=== PATIENT | female | born 1995 | race Caucasian/White ===

== ENCOUNTER 2019-09-05 11:57 | Inpatient (IN) | payer OTHER ==
[2019-09-10] MEDS ORDERED: METHYLERGONOVINE 0.2 MG/ML 1 ML AMP IM PRN (06:23)
[2019-09-10] MEDS ORDERED: OXYTOCIN 10 UNIT/ML 1 ML VIAL IM PRN (06:23)
[2019-09-10] MEDS ORDERED: TERBUTALINE 1 MG/ML VIAL SQ PRN (06:23)
[2019-09-10] MEDS ORDERED: LIDOCAINE 0.5% (PF) 5 MG/ML (50 ML SDV) SQ PRN (06:23)
[2019-09-10] MEDS ORDERED: CARBOPROST TROMETHAMINE 250 MCG/ML 1 ML AMP IM PRN (06:23)
[2019-09-10] MEDS ORDERED: OXYTOCIN 30 UNITS/500 ML NS 30 UNIT in SALINE 1 500ML.BAG IV SCH (06:30)
[2019-09-10] MEDS: LACTATED RINGERS 1,000 ML IV SCH ×2 (06:48→13:00)
[2019-09-10 06:58] LABS: Basophils # (A) 0.1 k/uL (0-0.2); Basophils % (A) 1 %; Eosinophils # (A) 0.1 k/uL (0-0.7); Eosinophils % (A) 1 %; HCT 42.7 % (34.0-46.0); HGB 14.3 gm/dL (11.4-16.0); Lymphocytes # (A) 2.1 k/uL (1.0-4.8); Lymphocytes % (A) 20 %; MCH 30.7 pg (25.0-35.0); MCHC 33.5 g/dL (31.0-37.0); MCV 91.8 fL (80.0-100.0); Mean Platelet Volume 9.4; Monocytes # (A) 0.6 k/uL (0-1.0); Monocytes % (A) 5 %; Neutrophils # (A) 7.4 k/uL (1.3-7.7); Neutrophils % (A) 71 %; Platelet Count 204 k/uL (150-450); RBC 4.65 m/uL (3.80-5.40); RDW 12.8 % (11.5-15.5); WBC 10.4 k/uL (3.8-10.6)
--- NOTE | 2019-09-10 08:20 | P.HPOB ---
History of Present Illness H&P Date: 09/10/19 Chief Complaint: IUP at 40-5/7 weeks, post date induction of labor This is a pleasant 23-year-old 1 para 0 at 40-5/7 weeks with an estimated due date of 09/04. Patient has been receiving routine care with myself which has been essentially uncomplicated. Patient was seen for routine visit yesterday which entailed an ultrasound revealing an estimated weight of 9 lbs. 3 oz. with normal amniotic fluid index an NST which was category 1. Patient denied contractions at that time. Patient was counseled on induction of labor secondary to postda clarence and LGA. Patient stated understanding and wished to proceed with induction of labor. This morning patient states good movement, she denies contractions, denies loss of fluid or vaginal bleeding. On bloodwork patient has a blood type of A+, rubella status immune, hepatitis B surface antigen negative, RPR nonreactive, HIV negative, GBS is negative. Review of Systems Constitutional: Denies chills, Denies fatigue, Denies fever Ears, nose, mouth and throat: Denies headache Cardiovascular: Reports leg edema Respiratory: Denies dyspnea Gastrointestinal: Denies constipation, Denies diarrhea, Denies nausea, Denies vomiting Genitourinary: Reports Past Medical History Past Medical History: No Reported History History of Any Multi-Drug Resistant Organisms: None Reported Past Surgical History: Tonsillectomy Additional Past Surgical History / Comment(s): wisdom teeth removed Past Anesthesia/Blood Transfusion Reactions: No Reported Reaction Smoking Status: Never smoker Medications and Allergies Home Medications Medication Instructions Recorded Confirmed Type Pnv,Calcium 72/Iron/Folic Acid 1 each PO DAILY 09/10/19 09/10/19 History [ Plus Tablet] Allergies Allergy/AdvReac Type Severity Reaction Status Date / Time Penicillins Allergy Unknown Verified 09/10/19 06:20 Childhood Exam Osteopathic Statement: *. No significant issues noted on an osteopathic structural exam other than those noted in the History and Physical/Consult. 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 Results Result Diagrams: 09/10/19 06:40 Assessment and Plan (1) Post-dates Current Visit: Yes Status: Acute Code(s): O48.0 - POST-TERM SNOMED Code(s): 78917254 Plan: This 23-year-old 1 para 0 at 40-5/7 weeks presents for elective induction of labor secondary to postdates. Patient is admitted and Pitocin induction of labor is begun per hospital protocol. Options for analgesia are discussed including epidural/Stadol. Patient states understanding and will consider both.
[2019-09-10] MEDS ORDERED: BUTORPHANOL 1 MG/ML 1 ML VIAL IV PRN (08:34)
[2019-09-10] MEDS ORDERED: ROPIVACAINE 5MG/ML 20ML VIAL ONE (11:27)
[2019-09-10] MEDS ORDERED: fentaNYL (PF) 50 MCG/ML 5 ML AMP ONE (11:27)
[2019-09-10] MEDS ORDERED: SODIUM CHLORIDE 0.9% 100 ML BAG ONE (11:27)
[2019-09-10] MEDS ORDERED: diphenhydrAMINE 50 MG CAP PO PRN (17:41)
[2019-09-10] MEDS ORDERED: SIMETHICONE 80 MG CHEWABLE PO PRN (17:41)
[2019-09-10] MEDS ORDERED: ACETAMINOPHEN TAB 325 MG TAB PO PRN (17:41)
[2019-09-10] MEDS ORDERED: BENZOCAINE/MENTHOL SPRAY 1 GM/SPRAY AEROSOL TOPICAL PRN (17:41)
[2019-09-10] MEDS ORDERED: HYDROCORTISONE 2.5% RECTAL CREAM 30 GM TUBE RECTAL PRN (17:41)
[2019-09-10] MEDS ORDERED: diphenhydrAMINE 50 MG/ML 1 ML VIAL IVP PRN ×2 (17:41)
[2019-09-10] MEDS ORDERED: HYDROcodone/APAP 5-325MG 1 EACH TAB PO PRN (17:41)
[2019-09-10] MEDS ORDERED: diphenhydrAMINE 25 MG CAP PO PRN (17:41)
[2019-09-10] MEDS ORDERED: ZOLPIDEM 5 MG TAB PO PRN (17:41)
[2019-09-10] MEDS ORDERED: LANOLIN CREAM 5 GM TUBE TOPICAL PRN (17:41)
--- NOTE | 2019-09-10 17:41 | P.PROBDLV ---
Vaginal Delivery Note - . Vaginal Delivery Note: This is a 23-year-old 1 para 0 at 40-5/7 weeks that presents to labor and delivery for induction of labor secondary to postdates. Patient was admitted to labor and delivery and doesn't induction of labor was begun per hospital protocol. Patient underwent amniotomy clear fluid was obtained. Patient became uncomfortable and requested epidural placement. Epidural was placed without difficulty by the anesthesia department. Patient progressed through labor becoming mean complete and started pushing. Patient had a normal spontaneous vaginal delivery of a viable female infant at 1710, weight of 7 lbs. 13 oz. or 3540 g. Spontaneous cry was noted at . Prior to delivery in episiotomy was performed no extension was noted after delivery of the . After two-minute delayed the umbo cord was doubly clamped and cut and the was handed off to the maternal abdomen. The placenta was then delivered spontaneously intact with three-vessel cord being noted. On inspection the patient's vaginal vault a midline episiotomy was noted this repaired in usual fashion with 3-0 repeat. A lateral vaginal wall laceration was noted this was repaired with a [id number] suture of 4-0 chromic. Hemostasis was appreciated both lacerations. Uterus is firm and below the umbilicus, estimated blood loss 300 mL All counts were noted to be correct 2 rectal exam was performed and found to be normal. Patient and infant tolerated delivery well and are resting comfortably. .
[2019-09-10] MEDS ORDERED: OXYTOCIN 20 UNITS/1000 ML NS 1,000 ML IV SCH (17:45)
[2019-09-11] MEDS: LACTATED RINGERS 1,000 ML IV SCH (03:42)
[2019-09-11] MEDS: SENNOSIDES-DOCUSATE SODIUM 1 EACH TAB PO SCH ×2 (03:42→07:59)
[2019-09-11] MEDS: IBUPROFEN 600 MG TAB PO PRN ×2 (05:13→13:53)
[2019-09-11 06:21] LABS: Basophils % (A) 0 %; Eosinophils # (A) 0.1 k/uL (0-0.7); Eosinophils % (A) 1 %; HCT 35.5 % (34.0-46.0); HGB 12.3 gm/dL (11.4-16.0); Lymphocytes # (A) 2.1 k/uL (1.0-4.8); Lymphocytes % (A) 17 %; MCH 32.2 pg (25.0-35.0); MCHC 34.6 g/dL (31.0-37.0); MCV 93.1 fL (80.0-100.0); Monocytes # (A) 0.8 k/uL (0-1.0); Monocytes % (A) 6 %; Neutrophils # (A) 9.8 k/uL (1.3-7.7); Neutrophils % (A) 76 %; Platelet Count 172 k/uL (150-450); RBC 3.81 m/uL (3.80-5.40); RDW 13.1 % (11.5-15.5); WBC 12.9 k/uL (3.8-10.6)
--- NOTE | 2019-09-11 08:48 | P.DS ---
Providers Date of admission: 09/10/19 06:05 Expected date of discharge: 09/11/19 Attending physician: Nancy Fuller Primary care physician: Stated None - Discharge Diagnosis(es) (1) Post-dates Current Visit: Yes Status: Acute (2) Status post vaginal delivery Current Visit: Yes Status: Acute Hospital Course: This 24-year-old 1 now para 1 presented to labor and delivery at 40-5/7 weeks for planned induction of labor secondary to postdates. Patient was admitted to labor and delivery and Pitocin induction of labor was begun per hospital protocol. Patient underwent amniotomy clear fluid was obtained. Patient progressed through labor eventually becoming complete requesting epidural placement. Epidural was placed that difficulty by the anesthesia department. Patient progressed to complete began pushing and had a normal spontaneous vaginal delivery of a viable female infant at 1710, weight of 7 lbs. 13 oz. Patient did sustain a midline episiotomy during delivery which was performed secondary to tearing noted clitorally. This was repaired in the usual fashion with 3-0 Rapide. Patient's course has been uneventful. On this day #1, she is ambulating and voiding without difficulty. She is tolerating a regular diet without nausea or vomiting. She states her pain is well-controlled. She would like discharge home at 24 hours if possible. Patient Condition at Discharge: Good Plan - Discharge Summary New Discharge Prescriptions: No Action Pnv,Calcium 72/Iron/Folic Acid [ Plus Tablet] 1 each PO DAILY Discharge Medication List Pnv,Calcium 72/Iron/Folic Acid [ Plus Tablet] 1 each PO DAILY 09/10/19 [History] Follow up Appointment(s)/Referral(s): Nancy Fuller DO [Doctor of Osteopathic Medicine] - 4 Weeks Patient Instructions/Handouts: Vaginal Delivery (DC), Vaginal Delivery (GEN) Discharge Disposition: HOME SELF-CARE
[2019-09-11] MEDS ORDERED: PRENATAL VIT-IRON-FOLIC ACID 1 EACH CAP PO SCH (09:00)
[2019-09-11 17:41] VITALS: BP 124/60; PULSE 78; RESP 18; TEMP 97.6
== END 2019-09-11 17:45 | disposition home or self-care (01) | DRG 807 ==
LOC: 4FBP 09-10 06:05
PROVIDERS: ADMIT Obstetrics & Gynecology Obstetrics; ATTEND Obstetrics & Gynecology Obstetrics
PROC: 00HU33Z Insertion of Infusion Device into Spinal Canal, Percutaneous Approach (ICD-10-PCS; principal; 2019-09-10)
PROC: 3E0R3NZ Introduction of Analgesics, Hypnotics, Sedatives into Spinal Canal, Percutaneous Approach (ICD-10-PCS; principal; 2019-09-10)
PROC: 10E0XZZ Delivery of Products of Conception, External Approach (ICD-10-PCS; principal; 2019-09-10)
PROC: 0W8NXZZ Division of Female Perineum, External Approach (ICD-10-PCS; principal; 2019-09-10)
PROC: 3E033VJ Introduction of Other Hormone into Peripheral Vein, Percutaneous Approach (ICD-10-PCS; principal; 2019-09-10)
PROC: 0KQM0ZZ Repair Perineum Muscle, Open Approach (ICD-10-PCS; principal; 2019-09-10)
PROC: 10907ZC Drainage of Amniotic Fluid, Therapeutic from Products of Conception, Via Natural or Artificial Opening (ICD-10-PCS; principal; 2019-09-10)
DX: O48.0 Post-term pregnancy (principal); Z37.0 Single live birth; O36.63X0 Maternal care for excessive fetal growth, third trimester, not applicable or unspecified; Z3A.40 40 weeks gestation of pregnancy; O70.1 Second degree perineal laceration during delivery
CPT/HCPCS: 85025; 86850; 86900; 86901